=== PATIENT | male | born 1990 | race Caucasian/White ===

== ENCOUNTER 2023-11-13 05:59 | Emergency (ER) | payer OTHER, SELFPAY ==
[2023-11-13 06:04] VITALS: BP 151/96; PULSE 93; RESP 16; TEMP 36.5; O2SAT 93
--- NOTE | 2023-11-13 06:16 | CTR_ITS ---
PROCEDURE INFORMATION: Exam: CT Cervical Spine Without Contrast Exam date and time: 11/13/2023 6:26 AM Age: 33 years old Clinical indication: Injury or trauma; Fall; Other: Hit head, neck pain TECHNIQUE: Imaging protocol: Computed tomography of the cervical spine without contrast. Radiation optimization: All CT scans at this facility use at least one of these dose optimization techniques: automated exposure control; mA and/or kV adjustment per patient size (includes targeted exams where dose is matched to clinical indication); or iterative reconstruction. COMPARISON: CT head wo con* [id number] 11/13/2023 6:26 AM RADIATION DOSE METRICS: Total DLP (mGy-cm): 630.7 FINDINGS: Bones/joints: No acute fracture. Normal alignment. No significant disc bulge or herniation. No severe spinal canal stenosis. No significant neural foraminal narrowing. Lungs: Lung apices are normal. Soft tissues: Unremarkable. CT/CT cervical spin wo con* [id number] IMPRESSION: No acute findings.
--- NOTE | 2023-11-13 06:16 | CTR_ITS ---
PROCEDURE INFORMATION: Exam: CT Head Without Contrast Exam date and time: 11/13/2023 6:26 AM Age: 33 years old Clinical indication: Injury or trauma; Fall; Other: Hit head, headache TECHNIQUE: Imaging protocol: Computed tomography of the head without contrast. Radiation optimization: All CT scans at this facility use at least one of these dose optimization techniques: automated exposure control; mA and/or kV adjustment per patient size (includes targeted exams where dose is matched to clinical indication); or iterative reconstruction. COMPARISON: CT cervical spin wo con* [id number] 11/13/2023 6:26 AM RADIATION DOSE METRICS: Total DLP (mGy-cm): 1061.5 FINDINGS: Brain: Normal. No hemorrhage. Unremarkable white matter. No mass effect. Cerebral ventricles: No ventriculomegaly. Paranasal sinuses: Visualized sinuses are unremarkable. No fluid levels. Mastoid air cells: Visualized mastoid air cells are well aerated. Bones/joints: Unremarkable. No acute fracture. Soft tissues: Unremarkable. Vasculature: Probable right MCA aneurysm. CT/CT head wo con* [id number] IMPRESSION: 1. No acute intracranial abnormality. 2. Probable right MCA aneurysm. Recommend CTA head for further evaluation.
--- NOTE | 2023-11-13 06:24 | XRR_ITS ---
PROCEDURE INFORMATION: Exam: XR Left Knee Exam date and time: 11/13/2023 7:25 AM Age: 33 years old Clinical indication: Injury or trauma; Fall; Blunt trauma; Knee; Left TECHNIQUE: Imaging protocol: Radiologic exam of the left knee. Views: 3 views. COMPARISON: No relevant prior studies available. FINDINGS: Bones/joints: Normal. No fracture or dislocation. No acute osseous, joint, or soft tissue abnormality. Soft tissues: Normal. XR/XR knee LT 3V* [id number] IMPRESSION: No acute findings.
--- NOTE | 2023-11-13 06:32 | ED_ITS ---
HPI - Fall 2 General: Chief Complaint: Fall Stated Complaint: FALL Time Seen by Provider: 11/13/23 06:05 Source: patient Mode of arrival: ambulatory History of Present Illness: 33-year-old male presents emergency room after a fall down a flight of stairs. He was at home and slipped and fell down the stairs about 2 hours ago patient states he took 2 shots of alcohol to alleviate the pain. His main complaint is pain in his neck. He denies loss of consciousness. He came in by EMS with c- collar in place. He is also complaining of left knee pain. MD complaint: fall Onset (ago): hour(s) (2) Fall from: standing Place fall occurred: home Loss of consciousness: None Prolonged down time: no Symptoms prior to fall: none Context: tripped/slipped Location of injury: neck Location of injury - extremities: Left: knee Associated symptoms-after fall: Denies abdominal pain, chest pain or neck pain Review of Systems 2 Const: Denies: fever(s) or chills Card: Denies: chest pain Resp: Denies: dyspnea GI: Denies: abdominal pain : Denies: dysuria, urinary frequency or urinary urgency Musc: Denies: neck pain or back pain Skin/Breast: Denies: rash Physical Exam 2 Const: COMMON NORMALS: no acute distress GENERAL APPEARANCE: cooperative and comfortable ORIENTATION/CONSCIOUSNESS: Yes awake, Yes oriented to person, Yes oriented to place and Yes oriented to time HENMT: COMMON NORMALS: normocephalic, atraumatic and hearing grossly normal bilaterally HEAD & SCALP: normocephalic and atraumatic Resp: COMMON NORMALS: normal respiratory effort, No retractions, No use of accessory muscles and clear to auscultation bilaterally AUSCULTATION: clear to auscultation bilaterally Cardio: COMMON NORMALS: regular rate, regular rhythm and No murmurs present (Cardio) RATE: regular rate RHYTHM: regular rhythm GI: COMMON NORMALS: Soft to palpation and No hepatosplenomegaly present A USCULTATION: Yes normoactive bowel sounds PALPATION: Yes Soft to palpation, No Tenderness to palpation present (GI), No Guarding due to palpation present (GI) and Yes No hepatosplenomegaly present Extremity: COMMON NORMALS: normal to inspection, capillary refill normal, no clubbing, cyanosis or edema, no calf tenderness and no pedal edema Neuro: SENSORIUM/ORIENTATION: Yes oriented to person, Yes oriented to place and Yes oriented to time Skin: COMMON NORMALS: no rashes or lesions noted GENERAL SKIN EXAM: no rashes or lesions noted Course 2 Vital Signs: Vital signs: Vital Signs Temperature 97.7 F 11/13/23 06:04 Pulse Rate 93 11/13/23 06:04 Respiratory Rate 16 11/13/23 06:04 Blood Pressure 151/96 11/13/23 06:04 Pulse Oximetry 93 11/13/23 06:04 Oxygen Delivery Me thod Room Air 11/13/23 06:04 MDM - Fall Medical Decision Making CT head and C-spine are negative. Patient insists on keeping the cervical collar in place. C-spine was cleared on the CT. Patient is acutely intoxicated. He admits to drinking quite a bit prior to the fall as well. Encouraged him to consider abstinence from alcohol. Incidental finding of a cerebral aneurysm. Patient states he has been told this previously he never had any further workup. Will set him up for a CTA head and follow-up with neurology. Medical Records I reviewed the patient's medical records. Lab Data I reviewed the patient's lab results. 11/13/23 07:10 11/13/23 07:10 Radiology Impressions Cervical Spine CT 11/13/23 06:16 IMPRESSION: No acute findings. Head CT 11/13/23 06:16 IMPRESSION: 1. No acute intracranial abnormality. 2. Probable right MCA aneurysm. Recommend CTA head for further evaluation. Knee X-Ray 11/13/23 06:24 IMPRESSION: No acute findings. Laboratory Results WBC 10.43 10^3/uL (3.29-11.43) 11/13/23 07:10 RBC 5.19 10^6/uL (3.85-5.65) 11/13/23 07:10 Hgb 16.10 g/dL (11.27-16.99) 11/13/23 07:10 Hct 47.1 % (37-53) 11/13/23 07:10 MCV 90.8 fl (82-101) 11/13/23 07:10 MCH 31.0 pg (27-33) 11/13/23 07:10 MCHC 34.2 g/dL (30-55) 11/13/23 07:10 RDW 12.9 % (12.1-15.1) 11/13/23 07:10 Plt Count 253 10^3/cmm (157-399) 11/13/23 07:10 MPV 9.3 fL (7.4-10.4) 11/13/23 07:10 Neut % (Auto) 70.5 % 11/13/23 07:10 Lymph % (Auto) 17.9 % 11/13/23 07:10 Wetzel % (Auto) 10.3 % 11/13/23 07:10 Eos % (Auto) 0.3 % 11/13/23 07:10 Baso % (Auto) 0.6 % 11/13/23 07:10 Neut # (Auto) 7.36 10^3/uL (1.8-7.7) 11/13/23 07:10 Lymph # (Auto) 1.9 10^3/uL (0.8-4.8) 11/13/23 07:10 Wetzel # (Auto) 1.1 10^3/uL (0.2-0.9) H 11/13/23 07:10 Eos # (Auto) 0.0 10^3/uL (0.0-0.8) 11/13/23 07:10 Baso # (Auto) 0.1 10^3/uL (0.0-0.1) 11/13/23 07:10 Nucleated RBC % (auto) 0 % 11/13/23 07:10 Nucleated RBCs # 0.0 /100WBC 11/13/23 07:10 Sodium 137 mmol/L (136-145) 11/13/23 07:10 Potassium 3.9 mmol/L (3.5-5.1) 11/13/23 07:10 Chloride 96 mmol/L (98-107) L 11/13/23 07:10 Carbon Dioxide 21 mmol/L (22-29) L 11/13/23 07:10 Anion Gap 23.9 (5-19) H 11/13/23 07:10 BUN 8 mg/dL (6-20) 11/13/23 07:10 Creatinine 0.6 mg/dL (0.7-1.2) L 11/13/23 07:10 GFR Calculation 155.2 mL/min (90-130) H 11/13/23 07:10 Glucose 97 mg/dL (65-115) 11/13/23 07:10 Calculated Osmolality 282 mOsm/kg (285-295) L 11/13/23 07:10 Calcium 8.9 mg/dL (8.5-10.5) 11/13/23 07:10 Total Bilirubin 1.1 mg/dL (0.15-1.2) 11/13/23 07:10 AST 54 U/L (0-40) H 11/13/23 07:10 ALT 52 U/L (0-41) H 11/13/23 07:10 Alkaline Phosphatase 73 U/L (40-130) 11/13/23 07:10 Total Protein 8.1 g/dL (6.6-8.7) 11/13/23 07:10 Albumin 4.8 g/dL (3.5-5.2) 11/13/23 07:10 Globulin 3.3 g/dL (1.3-4.6) 11/13/23 07:10 Ethyl Alcohol 166 mg/dL (0-10) H 11/13/23 07:10 All radiology interpretation(s) finalized by discharge Discharge Plan Discharge Patient Disposition: Home Clinical Impression: Intracranial aneurysm, Alcohol intoxication Condition: Stable Prescriptions: No Action No Known Home Medications Discharge Orders: Discharge ED (Routine); Ordered 11/13/23 Ordered By: Nick Elaine Discharge Diet: Usual diet Discharge Activity: Increase activity as tolerated Patient Instructions: Abuse of Alcohol (ED), At-Risk Alcohol Use (ED), Opioid Safety, Pain Management Activity Restrictions/Additional Instructions: Thank you for choosing [facility] for your healthcare needs today. Please realize this is an emergency room and that we are providing you with a medical screening exam and this may not be complete and all inclusive of all the testing and or work up that you may need to determine your ailment or severity of your illness. It is very important that you follow up as instructed or that you return to the Emergency Department should you have concerns or if your condition changes or worsens in any way. You were seen today after a fall. CT of your head and neck did not show any acute injury however there was a finding of a cerebral aneurysm. This should be followed up with a CTA of the head as an outpatient and follow-up with neurology. Also recommend you consider abstaining from alcohol in the future. Coding Level of Care Code ED Assistant Center Director for [facility]
[2023-11-13] MEDS: ketorolac 30 mg/mL INJ IM (06:38)
[2023-11-13 07:21] LABS: Basophils # 0.1 10^3/uL (0.0-0.1); Basophils % 0.6 %; Eosinophils % 0.3 %; Hematocrit 47.1 % (37-53); Lymphocytes # 1.9 10^3/uL (0.8-4.8); Lymphocytes % 17.9 %; Mean Corpuscular HGB Conc 34.2 g/dL (30-55); Mean Corpuscular Volume 90.8 fl (82-101); Mean Platelet Volume 9.3 fL (7.4-10.4); Monocytes # 1.1 10^3/uL (0.2-0.9); Monocytes % 10.3 %; Neutrophils # 7.36 10^3/uL (1.8-7.7); Neutrophils % 70.5 %; Nucleated Red Blood Cells % 0 %; Platelet Count 253 10^3/cmm (157-399); Red Blood Count 5.19 10^6/uL (3.85-5.65); Red Cell Distribution Width 12.9 % (12.1-15.1); White Blood Count 10.43 10^3/uL (3.29-11.43)
[2023-11-13 07:39] LABS: Alanine Aminotransferase 52 U/L (0-41); Albumin Level 4.8 g/dL (3.5-5.2); Alcohol Level 166 mg/dL (0-10); Alkaline Phosphatase 73 U/L (40-130); Anion Gap 23.9 (5-19); Aspartate Amino Transferase 54 U/L (0-40); Blood Urea Nitrogen 8 mg/dL (6-20); Calcium 8.9 mg/dL (8.5-10.5); Carbon Dioxide 21 mmol/L (22-29); Chloride 96 mmol/L (98-107); Creatinine Clr Calc Pharmacy 216.5304; Globulin 3.3 g/dL (1.3-4.6); Glomerular Filtration Rate 155.2 mL/min (90-130); Glucose 97 mg/dL (65-115); Osmolality Calculated 282 mOsm/kg (285-295); Potassium 3.9 mmol/L (3.5-5.1); Sodium 137 mmol/L (136-145); Total Bilirubin 1.1 mg/dL (0.15-1.2); Total Protein 8.1 g/dL (6.6-8.7)
--- NOTE | 2023-11-13 08:11 | PC.NURSE ---
PT HAS REMOVED B/P CUFF AND PULSE OX LINE, REFUSING THEM, STATING HE WANTS TO LEAVE.
--- NOTE | 2023-11-13 08:30 | DCPLANNER ---
Message sent to Neurology for follow up- CT of your head and neck did not show any acute injury however there was a finding of a cerebral aneurysm. This should be followed up with a CTA of the head as an outpatient and follow-up with neurology.
--- NOTE | 2023-11-13 09:32 | DCPLANNER ---
Faxed orders to centralized scheduling.
== END 2023-11-13 08:29 | disposition home or self-care (01) ==
PROVIDERS: Emergency Provider Family Medicine
DX: I67.1 Cerebral aneurysm, nonruptured (principal); F10.129 Alcohol abuse with intoxication, unspecified; Y90.6 Blood alcohol level of 120-199 mg/100 ml
CPT/HCPCS: 70450; 72125; 73562; 80053; 80307; 85025; 96372; 99284; J1885